=== PATIENT | female | born 1970 | race Hispanic/Latino ===

== ENCOUNTER 2021-10-26 06:38 | Emergency (ER) | payer SELFPAY ==
[2021-10-26 07:26] VITALS: BP 160/84
--- NOTE | 2021-10-26 07:55 | Emergency Department Report ---
Blank Doc - Documentation Documentation: As I entered the patient's room, the patient was not present. I did not see or examine the patient. The RN was notified of patient not being there and to call patient to return for further evaluation and treatment. Patient left without being seen by me or any other provider.
== END 2021-10-26 08:13 | disposition left against medical advice (07) ==
LOC: ED 06:38
DX: F41.9 Anxiety disorder, unspecified (principal); Z53.21 Procedure and treatment not carried out due to patient leaving prior to being seen by health care provider